=== PATIENT | female | born 1995 | race African-American/Black ===

== ENCOUNTER 2016-10-31 06:53 | Inpatient (IN) | payer OTHER ==
[~2016-10-31] VITALS: Ht 172.7 cm; Wt 66.8 kg
[2016-10-31] VITALS (10 sets, daily range): BP systolic 98–135; BP diastolic 54–74
[2016-10-31 08:38] LABS: EOSINOPHIL (%) 0.1 % (0-5); HEMATOCRIT 35.9 % (36.0-46.0); IMMATURE GRANULOCYTE (%) 0.5 % (0.0-0.7); IMMATURE GRANULOCYTE COUNT 0.1 K/uL; INSTRUMENT ABS NEUTROPHIL CT 11.9 K/uL; LYMPHOCYTE COUNT 1.4 K/uL (1.0-2.8); MCH 22.9 PG (29.0-34.0); MCHC 32.6 G/DL (30.0-36.0); MCV 70.1 FL (83-99); MONOCYTE (%) 4.3 % (3-12); MONOCYTE COUNT 0.6 K/uL (0-0.8); NEUTROPHIL (%) 84.9 % (45-76); NEUTROPHIL COUNT 11.9 K/uL (1.8-6.4); PLATELET COUNT 188 K/uL (156-360); RBC DIS.WIDTH-CV 14.8 % (11.8-14.6); RBC DIS.WIDTH-SD 36.3 % (39-53); RED BLOOD COUNT 5.12 M/uL (3.80-5.20); WHITE BLOOD COUNT 14.1 K/uL (4.1-10.2)
[2016-11-01 06:57] LABS: EOSINOPHIL (%) 0.8 % (0-5); EOSINOPHIL COUNT 0.1 K/uL (0-0.3); HEMATOCRIT 29.4 % (36.0-46.0); IMMATURE GRANULOCYTE (%) 0.5 % (0.0-0.7); IMMATURE GRANULOCYTE COUNT 0.1 K/uL; INSTRUMENT ABS NEUTROPHIL CT 7.4 K/uL; LYMPHOCYTE COUNT 3.1 K/uL (1.0-2.8); MCH 23.1 PG (29.0-34.0); MCHC 32.7 G/DL (30.0-36.0); MCV 70.8 FL (83-99); MONOCYTE (%) 9.8 % (3-12); MONOCYTE COUNT 1.2 K/uL (0-0.8); NEUTROPHIL (%) 62.6 % (45-76); NEUTROPHIL COUNT 7.4 K/uL (1.8-6.4); PLATELET COUNT 163 K/uL (156-360); RBC DIS.WIDTH-CV 14.6 % (11.8-14.6); RBC DIS.WIDTH-SD 36.4 % (39-53); RED BLOOD COUNT 4.15 M/uL (3.80-5.20); WHITE BLOOD COUNT 11.8 K/uL (4.1-10.2)
[2016-11-01 07:05] VITALS: BP 100/57
[2016-11-01 15:31] VITALS: BP 110/53
[2016-11-01 22:45] VITALS: BP 118/56
[2016-11-02 07:41] VITALS: BP 111/62
[2016-11-02] MEDS ORDERED: IBUPROFEN800 MG PO (10:36)
[2016-11-02] MEDS ORDERED: DOCUSATE SODIU100 MG PO (10:36)
[2016-11-02] MEDS ORDERED: FERROCITE324 MG PO (10:37)
[2016-11-02] MEDS ORDERED: CAMILA0.35 MG PO (10:37)
[2016-11-02 14:15] VITALS: BP 109/62
== END 2016-11-02 17:00 | disposition home or self-care (01) | DRG 774 ==
LOC: LDRP-OP 06:53 → 2WEST 06:54 → LDRP-OP 12-08 13:05
PROVIDERS: Advanced Practice Midwife
DX: O99.824 Streptococcus B carrier state complicating childbirth (principal); O98.32 Other infections with a predominantly sexual mode of transmission complicating childbirth; O99.324 Drug use complicating childbirth; F12.10 Cannabis abuse, uncomplicated; D62 Acute posthemorrhagic anemia; O70.0 First degree perineal laceration during delivery; O99.02 Anemia complicating childbirth; A59.9 Trichomoniasis, unspecified; Z3A.39 39 weeks gestation of pregnancy; Z37.0 Single live birth; Z68.1 Body mass index [BMI] 19.9 or less, adult; Z87.891 Personal history of nicotine dependence
CPT/HCPCS: 85025; 87070; 87075; 87076; 87185; 87205; 87491; 87591; C1755; J2540; J7120